=== PATIENT | male | born 1975 | race American Indian/Alaskan Native ===

== ENCOUNTER 2022-04-28 05:12 | Day surgery (SDC) | payer BC ==
[2022-04-26 10:21] VITALS: BMI 32.1
[2022-04-28 11:02] VITALS: TEMP 98.1
[2022-04-28 13:06] VITALS: BP 128/67; PULSE 60; RESP 14
== END 2022-04-28 13:01 | disposition home or self-care (01) ==
LOC: JASU-ENDO 05:12
PROVIDERS: ATTEND Internal Medicine Gastroenterology
PROC: 0DBH8ZX Excision of Cecum, Via Natural or Artificial Opening Endoscopic, Diagnostic (ICD-10-PCS; principal; 2022-04-28 12:00)
DX: Z12.11 Encounter for screening for malignant neoplasm of colon (principal); K63.5 Polyp of colon; K64.8 Other hemorrhoids; Z80.0 Family history of malignant neoplasm of digestive organs; Z86.010 Personal history of colon polyps
CPT/HCPCS: 88305-TC